=== PATIENT | female | born 1945 | race Caucasian/White ===

== ENCOUNTER 2022-03-18 18:04 | Emergency (ER) | payer MEDICARE, SELFPAY ==
[2022-03-18 18:40] VITALS: BP 141/62; PULSE 72; RESP 18; TEMP 36.6; O2SAT 95; BMI 23.6
[2022-03-18 21:18] VITALS: O2SAT 99
[2022-03-18 21:19] VITALS: PULSE 75; O2SAT 99
[2022-03-18 21:20] VITALS: BP 168/70; PULSE 77; O2SAT 99
--- NOTE | 2022-03-18 22:31 | ED_ITS ---
HPI - Extremity Problem General Chief complaint: Extremity Problem,Nontraumatic Stated complaint: lt buttock and leg pain Time Seen by Provider: 03/18/22 20:15 Source: patient Mode of arrival: Ambulatory History of Present Illness HPI Narrative: 76F nonsmoker without a significant chronic medical history presents with a chief complaint of left lower back pain, buttock pain that radiates into her left leg. She denies any significant trauma, she is had no fever or chills and takes no blood thinners. She does have a history of prior low back problems and is managed by a primary care provider back home in [place]. She denies loss of control of bowel or bladder and though she has pain in her left leg she denies any weakness. She is otherwise well and free of complaint. She had called her primary care provider to inquire about possibly getting some pain medication but was directed here for possible imaging and evaluation Related Data Previous Rx's Medication Instructions Recorded cyclobenzaprine 10 mg tablet 10 mg PO TID PRN muscle spasm #14 03/18/22 tabs gabapentin 300 mg capsule 300 mg PO BEDTIME #14 caps 03/18/22 ketorolac 10 mg tablet 10 mg PO Q6H PRN pain #14 tabs 03/18/22 methylprednisolone 4 mg tablets in See Rx Instructions PO .COMPLEX 03/18/22 a dose pack (Medrol (Rohith)) #21 ea Review of Systems Review of Systems Narrative: GENERAL: Denies chills, fatigue, malaise, fever, sweats. HEENT: Denies sinus pain, ear pain, sore throat, difficulty swallowing, dizziness. RESPIRATORY: Denies dyspnea, cough, wheezing, hemoptysis, sputum. CARDIOVASCULAR: Denies chest pain, palpitations, orthopnea, edema, GASTROINTESTINAL: Denies nausea, vomiting, abdominal pain, diarrhea, constipation, melena. : Denies dysuria, frequency, incontinence, hematuria, urinary retention. MUSCULOSKELETAL: See HPI SKIN: Denies rash, skin lesions, or other NEUROLOGIC: See HPI PSYCHIATRIC: No concerning psychosocial issues. 12 point review of systems is negative except for those stated above Patient History Social History Smoking Status: Never smoker Smoking Status: Never smoker Substance Use Type: does not use Exam Narrative Exam Narrative: GENERAL: [] year old patient appears stated age. Well-developed patient, in mild distress. HEAD: Atraumatic. Normocephalic. EYES: Pupils equal round and reactive. Extraocular motions intact. No scleral icterus. No injection or drainage. ENT: Nose without bleeding, purulent drainage. Throat without erythema, tonsillar hypertrophy or exudate. Airway patent. NECK: Trachea midline. Non tender CARDIOVASCULAR: Regular rate and rhythm without murmurs, gallops, or rubs. RESPIRATORY: Clear to auscultation. Breath sounds equal bilaterally. No wheezes, rales, or rhonchi. GASTROINTESTINAL: Abdomen soft, non-tender, nondistended. EXTREMITIES: No edema or joint tenderness. BACK: marking machine tender but free of any obvious external abnormalities. Patient exam notes decreased range of motion and muscle spasm, but no CVA tenderness, or vertebral point tenderness. There are no symptoms of cauda equina such as saddle anesthesia, and decreased reflexes, decreased sensation or strength. NEURO: AOx3. SKIN: No rash or erythema of visible areas Initial Vital Signs Initial Vital Signs: Vital Signs Temperature 97.8 F 03/18/22 18:40 Pulse Rate 72 03/18/22 18:40 Respiratory Rate 18 03/18/22 18:40 Blood Pressure 141/62 H 03/18/22 18:40 Pulse Oximetry 95 03/18/22 18:40 Oxygen Delivery Method 03/18/22 18:40 Course Orders Ordered: ED Orders 03/18/22 22:41 XR hip w pel if done LT 2V Stat Discontinued Medications Cyclobenzaprine HCl (Cyclobenzaprine 10 Mg Prepack) 1 bottle MISC SEEINSTR ONE Stop: 03/18/22 22:42 Last Admin: 03/18/22 23:17 Dose: 1 bottle Documented By: NAV Gabapentin (Gabapentin 300 Mg Capsule) 300 mg PO NOW ONE Stop: 03/18/22 22:42 Last Admin: 03/18/22 23:17 Dose: 300 mg Documented By: NAV Prednisone (Prednisone 20 Mg Tablet) 40 mg PO NOW ONE Stop: 03/18/22 22:42 Last Admin: 03/18/22 23:17 Dose: 40 mg Documented By: NAV Vital Signs Vital signs: Vital Signs - 8 hr 03/18/22 23:34 Pulse Rate 67 Respiratory Rate 16 Blood Pressure 151/72 H Pulse Oximetry 98 Oxygen Delivery Method Room Air Discharge Plan Departure Patient Disposition: Home Clinical Impression: Radicular leg pain Instructions: DI for Back Pain With Sciatica Activity Restrictions/Additional Instructions: *You have been diagnosed with [left posterior hip pain with radicular symptoms. As we discussed this is most consistent with spasm or inflammation compressing a peripheral nerve. There is no evidence of any neurosurgical emergency or spinal cord involvement. X-ray is unremarkable and shows no sign of fracture or dislocation] *What to do: *Please continue to take your regular medications as directed. [ x] New medication prescriptions sent to your pharmacy: [ [facility]] [ ] New medication written as a paper prescription [ ] No new medications given *Please follow up with your primary care provider in 2-3 days, call for an appointment. Let them know you were seen in the Emergency Department and that we ask that you be seen in follow up. We will electronically transmit a record of today's note if your PCP is in our system *If you do not have a primary care provider please contact the [facility] Resource line at [phone]. They will ask some questions about your medical history and help get you set up with a doctor in the community. *Return to Emergency Department if you should have any new, worsening or concerning symptoms, such as [fever greater than 101 F, shaking chills, worsening pain, persistent vomiting or other bothersome symptoms] Prescriptions: New cyclobenzaprine 10 mg tablet 10 mg PO TID PRN (Reason: muscle spasm) Qty: 14 0RF ketorolac 10 mg tablet 10 mg PO Q6H PRN (Reason: pain) Qty: 14 0RF gabapentin 300 mg capsule 300 mg PO BEDTIME Qty: 14 0RF methylprednisolone [Medrol (Rohith)] 4 mg tablets,dose pack See Rx Instructions .ROUTE .COMPLEX Qty: 21 0RF Rx Instructions: orally per package directions Referrals: Doug Rosas DO [Physician] - Marianna Bullard MD [Physician] - Visit Report Forms: Patient Portal/API
--- NOTE | 2022-03-18 22:41 | DI.RAD.S_ITS ---
PROCEDURE: XR HIP W PEL IF DONE LT 2V INDICATIONS: pain in hip, no obvious injury TECHNIQUE: AP pelvis with lateral view(s) of the left hip(s). COMPARISON: None. FINDINGS: Bones: No fractures or dislocations. Pelvic ring appears intact. No suspicious bony lesions. Soft tissues: The visualized bowel gas pattern is normal. No suspicious soft tissue calcifications. IMPRESSION: No acute finding. Dictated by: Josiah Gordon M.D. on 03/18/2022 at 23:07 Approved by: Josiah Gordon M.D. on 03/18/2022 at 23:07
[2022-03-18] MEDS: GABAPENTIN 300 MG CAPSULE PO (23:17)
[2022-03-18] MEDS: predniSONE 20 MG TABLET 40 MG PO (23:17)
[2022-03-18] MEDS: CYCLOBENZAPRINE 10 MG PREPACK 1 BOTTLE MISC (23:17)
[2022-03-18 23:34] VITALS: BP 151/72; PULSE 67; RESP 16; O2SAT 98
== END 2022-03-18 23:28 | disposition home or self-care (01) ==
PROVIDERS: Emergency Provider Emergency Medicine
DX: M54.16 Radiculopathy, lumbar region (principal)
CPT/HCPCS: 73502; 99283